=== PATIENT | male | born 1985 | race Caucasian/White ===

== ENCOUNTER 2024-03-13 08:36 | Emergency (ER) | payer BC ==
[~2024-03-13] VITALS: Ht 180.3 cm; Wt 79.5 kg
[~2024-03-13 08:36] MED LIST: AMOXICILLIN 8751 TAB PO
[2024-03-13 08:43] VITALS: TEMP 98
[2024-03-13] MEDS ORDERED: oxyCODONE/Acetaminophen 5-325 MG TAB PO ONE (09:30)
[2024-03-13] MEDS ORDERED: LEVAQUIN 5500 MG/TA1 PO (11:23)
[2024-03-13] MEDS ORDERED: PERCOCET 325 MG1 TA2 PO (11:24)
[2024-03-13] MEDS ORDERED: cefTRIAXone 1 G,Lidocaine PF 1% 2.1 ML IM ONE (11:30)
[2024-03-13 11:36] VITALS: BP 154/100; PULSE 68
== END 2024-03-13 11:36 | disposition home or self-care (01) ==
LOC: COL.ER 08:36
DX: N45.3 Epididymo-orchitis (principal)
CPT/HCPCS: J0696